=== PATIENT | female | born 1995 | race Two or more races ===

== ENCOUNTER 2019-10-14 11:02 | Observation (INO) | payer MEDICAID ==
[2019-10-14] MEDS ORDERED: PREN-96 PO (12:34)
== END 2019-10-14 13:20 | disposition home or self-care (01) ==
LOC: XYW 11:02 → LDRP 11:21
PROVIDERS: ADMIT Obstetrics & Gynecology; ATTEND Obstetrics & Gynecology
DX: O48.0 Post-term pregnancy (principal); Z3A.40 40 weeks gestation of pregnancy
CPT/HCPCS: 59025; 76818; 81002; G0378

== ENCOUNTER 2019-10-16 19:22 | Observation (INO) | payer MEDICAID ==
[~2019-10-16] VITALS: Ht 160 cm; Wt 73.0 kg
[~2019-10-16 19:22] MED LIST: PREN-96 PO
== END 2019-10-16 20:34 | disposition home or self-care (01) ==
LOC: LDRP 19:22
PROVIDERS: ADMIT Specialist; ATTEND Specialist
DX: O48.0 Post-term pregnancy (principal); Z3A.40 40 weeks gestation of pregnancy
CPT/HCPCS: 59025; 76818; 81002; G0378

== ENCOUNTER 2019-10-17 11:05 | Inpatient (IN) | payer MEDICAID ==
[~2019-10-17] VITALS: Ht 160 cm; Wt 68.5 kg
[2019-10-17] MEDS ORDERED: LACTATED RINGER'S 1,000 ML IV SCH (11:58)
[2019-10-17] MEDS ORDERED: CARBOPROST TROMETHAMINE 250 MCG/1ML VIAL IM PRN (12:00)
[2019-10-17] MEDS ORDERED: PENICILLIN G POT 5MIL/D5 50ML 50 ML IV ONE ×2 (12:00→12:21)
[2019-10-17] MEDS ORDERED: LIDOCAINE 2%HCL (LOCAL ANESTH.) INJ 20ML MDV ID ONE (12:00)
[2019-10-17] MEDS ORDERED: WITCH HAZEL-GLYCERIN PAD TOP PRN (12:00)
[2019-10-17] MEDS ORDERED: METHYLERGONOVINE MALEATE 0.2 MG/ML AMP IM PRN (12:00)
[2019-10-17] MEDS ORDERED: DERMOPLAST 60ML BOTTLE TOP PRN (12:00)
[2019-10-17] MEDS ORDERED: PHISODERM TOP SOLN 240ML BTL TOP PRN (12:00)
[2019-10-17] MEDS ORDERED: miSOPROStol 50 MCG per PRE-CUT 1/2 TAB PO PRN (12:15)
[2019-10-17 13:13] LABS: Urine Bacteria FEW /hpf (None Seen); Urine Blood 2+ /uL (Negative); Urine Specific Gravity 1.009 (1.001-1.035); Urine WBC 14 /hpf (0 - 5)
[2019-10-17 13:16] LABS: Basophils # (auto) 0 10 ^3/uL (0-0.2); Basophils % (auto) 0.3 % (0.0-2.0); Eosinophils # (auto) 0 10 ^3/uL (0-0.8); Eosinophils % (auto) 0.1 % (0.0-7.0); Hematocrit 38.3 % (36.0-46.0); Lymphocytes # (auto) 1.4 10 ^3/uL (0.4-5.4); Lymphocytes % (auto) 15.2 % (10.0-50.0); Mean Corpuscular Hemoglobin 30.9 pg (28.0-32.0); Mean Corpuscular Hgb Conc. 34.1 g/dL (32.0-36.0); Mean Corpuscular Volume 90.7 fL (80.0-100.0); Monocytes # (auto) 0.5 10 ^3/uL (0-1.3); Neutrophils # (auto) 7.5 10 ^3/uL (1.6-8.6); Neutrophils % (auto) 79.4 % (37.0-80.0); Platelet Count (auto) 259 10^3/uL (140-450); Red Blood Cells 4.22 10^6/uL (4.0-5.20); Red Cell Distribution Width 15.3 % (11.8-14.3); White Blood Cell 9.4 10^3/uL (4.4-10.8)
[2019-10-17 13:30] LABS: INR 0.88 (0.9-1.15); Partial Thromboplastin Time 26.5 sec (23.0-31.2)
[2019-10-17 13:34] LABS: Albumin 2.6 g/dL (3.4-5.0); Calcium 8.7 mg/dL (8.5-10.1); Potassium 3.6 mmol/L (3.5-5.1)
[2019-10-17 13:36] LABS: Alcohol, Urine < 3.0 mg/dL (0-10); Amphetamine Screen, Urine NEGATIVE (NEGATIVE); Barbiturate Scree,Urine NEGATIVE (NEGATIVE); Benzodiazephine Screen, Urine NEGATIVE (NEGATIVE); Cannabinoid Screen, Urine NEGATIVE (NEGATIVE); Cocaine Screen, Urine NEGATIVE (NEGATIVE); Opiate Scree,Urine NEGATIVE (NEGATIVE); Phencyclidine Screen, Urine NEGATIVE (NEGATIVE)
[2019-10-17 13:37] LABS: BUN/Creatinine Ratio 13.5; Bilirubin, Total 0.6 mg/dL (0.2-1.0); Total Protein 6.3 g/dL (6.4-8.2)
[2019-10-17] MEDS ORDERED: LACTATED RINGER'S 1,000 ML IV ONE (13:47)
[2019-10-17] MEDS ORDERED: LIDOCAINE HCL 2 %PF INJ 10ML AMP IJ ONE (14:00)
[2019-10-17] MEDS ORDERED: ePHEDrine SULFATE 50 MG/ML AMP IV ONE ×2 (14:00→15:00)
[2019-10-17] MEDS ORDERED: ROPIVACAINE HCL 100 ML EPI SCH ×2 (14:00→15:00)
[2019-10-17] MEDS ORDERED: SODIUM CHLORIDE 0.9% 500 ML IV PRN (14:46)
[2019-10-17] MEDS ORDERED: LACT. RINGERS/OXYTOCIN 20UNITS 1,000 ML IV SCH (14:47)
[2019-10-17] MEDS ORDERED: LACT. RINGERS/OXYTOCIN 20UNITS 1,000 ML IV ONE ×2 (14:48→15:00)
[2019-10-17] MEDS ORDERED: NALOXONE HCL 0.4 MG/ML VIAL IV ONE (15:00)
[2019-10-17] MEDS ORDERED: miSOPROStol 100 mcg TAB SL ONE (15:15)
[2019-10-17] MEDS ORDERED: miSOPROStol 100 mcg TAB PR ONE (15:15)
[2019-10-17] MEDS ORDERED: miSOPROStol 100 mcg TAB ONE (15:25)
[2019-10-17] MEDS ORDERED: PENICILLIN G POTASSIUM 2,500,000 UNITS in D5W 5% 50 ML IV SCH (16:00)
[2019-10-17] MEDS: ACETAMINOPHEN 325 MG TAB PO PRN (17:52)
[2019-10-17] MEDS ORDERED: ceFAZolin 1GM/50ML 50 ML IV ONE (18:00)
--- NOTE | 2019-10-17 18:45 | NUR ---
Ambulation: Patient OOB with standby assistance by RN. Patient ambulated to bathroom with steady gait. Patient able to void 600ml of clear yellow urine without difficulty. [facility]icare teaching provided with returned demonstration by patient. Clean gown provided and bed linen changed. Patient ambulated back to bed with steady gait and no distress noted.
[2019-10-17 19:00] VITALS: BP 115/60
[2019-10-17] MEDS ORDERED: ceFAZolin 1GM/50ML 50 ML IV SCH (22:00)
[2019-10-17] MEDS: IBUPROFEN 600 MG TAB PO PRN (22:50)
[2019-10-17 23:00] VITALS: BP 111/71
[2019-10-18] MEDS ORDERED: TETANUS-DIPTH-ACEL PERTUSSIS 0.5ML SYR Tdap IM ONE
[2019-10-18] MEDS ORDERED: ceFAZolin 1GM 2 GM in D5W 5% 100 ML IV SCH (02:00)
[2019-10-18] MEDS ORDERED: ceFAZolin 1GM/50ML 50 ML IV SCH (02:30)
[2019-10-18 03:00] VITALS: BP 100/60
[2019-10-18 05:11] LABS: RPR Non Reactive (Non Reactive)
--- NOTE | 2019-10-18 06:15 | NUR ---
Report received from Storm Escobar RN on stable pt. Assumed care. Addendum: 10/18/19 at 0749 by Yajaira Haile RN Amended: Links added.
[2019-10-18 06:32] VITALS: BP 108/72
[2019-10-18] MEDS: ceFAZolin 1GM/50ML 50 ML IV SCH ×2 (10:36→18:47)
[2019-10-18 11:54] VITALS: BP 110/71
[2019-10-18 15:12] VITALS: BP 111/74
--- NOTE | 2019-10-18 18:07 | NUR ---
Report given to Jerry Diaz RN on stable pt. Relinquished care. Addendum: 10/18/19 at 1809 by Yajaira Haile RN Amended: Links added.
--- NOTE | 2019-10-18 18:07 | NUR ---
Report given to Jerry Diaz RN on stable pt. [facility].
[2019-10-18] MEDS: ACETAMINOPHEN 325 MG TAB PO PRN (18:43)
[2019-10-18 19:00] VITALS: BP 111/78
--- NOTE | 2019-10-18 19:00 | NUR ---
IV removal and IV insertion IV infiltrated,DC'd with clean sterile technique, catheter fully intact. Pressure dressing and warm pack applied to site. Patient tolerated well. 190: IV insertion IV access obtained, via clean sterile technique by inserting 20 gauge catheter at left hand after 1 attempt. IV secured properly. No trauma to site. Patient tolerated well.
[2019-10-18 23:05] VITALS: BP 112/77
[2019-10-19 03:15] VITALS: BP 105/72
[2019-10-19] MEDS: ceFAZolin 1GM/50ML 50 ML IV SCH (03:23)
[2019-10-19] MEDS: IBUPROFEN 600 MG TAB PO PRN (03:23)
[2019-10-19 06:57] VITALS: BP 101/61
[2019-10-19 11:00] VITALS: BP 110/60
--- NOTE | 2019-10-19 13:00 | NUR ---
Discharge: Discharge instructions given as ordered. Pt encouraged to follow up with BPM ANALYST as instructed. All questions and concerns addressed. Patient verbalized understanding. Medication reconciliation completed and copy given to patient. All required/requested vaccines given and copies of vaccinations given to patient. Patient encouraged to prepare to depart unit.
--- NOTE | 2019-10-19 13:00 | NUR ---
Discharge: Discharge instructions given as ordered. Pt encouraged to follow up with [employer]CIAL LO[employer] OFFICER as instructed. All questions and concerns addressed. Patient verbalized understanding. Medication reconciliation completed and copy given to patient. All required/requested vaccines given and copies of vaccinations given to patient. Patient encouraged to prepare to depart unit.
--- NOTE | 2019-10-19 13:20 | NUR ---
IV removal 20G IV in R wrist DC'd with sterile technique, catheter fully intact. Pressure dressing applied to site. Patient tolerated procedure well.
[2019-10-19 13:45] VITALS: BP 110/60
--- NOTE | 2019-10-19 13:45 | NUR ---
Discharge: Patient ambulated to vehicle with all personal belongings, accompanied by staff and family member. No distress noted at time of departure, no adverse changes in status since initial assessment.
== END 2019-10-19 13:45 | disposition home or self-care (01) | DRG 560 ==
LOC: LDRP 11:05 → OBSVTOIN 11:48
PROVIDERS: ADMIT Specialist; ATTEND Specialist
PROC: 10E0XZZ Delivery of Products of Conception, External Approach (ICD-10-PCS; principal; 2019-10-17)
PROC: 0HQ9XZZ Repair Perineum Skin, External Approach (ICD-10-PCS; 2019-10-17)
PROC: 3E0R3BZ Introduction of Anesthetic Agent into Spinal Canal, Percutaneous Approach (ICD-10-PCS; 2019-10-17)
PROC: 00HU33Z Insertion of Infusion Device into Spinal Canal, Percutaneous Approach (ICD-10-PCS; 2019-10-17)
DX: O77.0 Labor and delivery complicated by meconium in amniotic fluid (principal); O70.0 First degree perineal laceration during delivery; Z3A.40 40 weeks gestation of pregnancy; Z37.0 Single live birth; Z20.828 Contact with and (suspected) exposure to other viral communicable diseases
CPT/HCPCS: 36415; 59025; 59409; 80053; 80307; 81001; 84112; 85025; 85610; 85730; 86592; 86850; 86900; 86901; 87426; 90715; 96360; 96361; 96365; 96366; 96372; G0378; J0690; J2540; J2590; J7060